=== PATIENT | male | born 1980 | race Caucasian/White ===

== ENCOUNTER 2019-06-08 11:40 | Emergency (ER) | payer OTHER ==
[~2019-06-08] VITALS: Ht 188 cm; Wt 99.8 kg
[2019-06-08 12:01] VITALS: BP 128/95
[2019-06-08] MEDS ORDERED: LORazepam Inj 2mg/ml 1ml IM ONE (12:15)
[2019-06-08 13:50] VITALS: BP 120/68
[2019-06-08 13:53] LABS: BASOPHILS % (AUTO) 1.2 % (0.0-2.0); EOSINOPHILS % (AUTO) 0.3 % (0.0-3.0); HEMATOCRIT 42.1 % (42.0-52.0); HEMOGLOBIN 14.8 G/DL (14.2-18.0); LYMPHOCYTES % (AUTO) 25.1 % (20.0-45.0); MEAN CORPUSCULAR VOLUME 91 FL (80-99); MONOCYTES % (AUTO) 9.3 % (1.0-10.0); NEUTROPHILS % (AUTO) 64.1 % (45.0-75.0); PLATELET COUNT 362 K/UL (150-450); RED BLOOD COUNT 4.61 M/UL (4.70-6.10); RED CELL DISTRIBUTION WIDTH 11.4 % (11.6-14.8); WHITE BLOOD COUNT 10.1 K/UL (4.8-10.8)
--- NOTE | 2019-06-08 14:02 | Emergency Room Report ---
History of Present Illness General Chief Complaint: Behavioral Complaint Source: Patient Present Illness HPI 38-year-old male presents ED for anxiety. Patient states that he believes someone is trying to hurt him so he came to ED to be protected. Feels anxious. Denies hearing voices. Denies drug use or alcohol use. States he was recently discharged from mental health facility. Does not know the name of it. Denies hearing voices. No other aggravating relieving factors. Denies any other associated symptoms COVID-19 risk:Contact w/high r: No COVID-19 risk:Travel to affect: No Has patient experienced woo: No Allergies: Coded Allergies: No Known Allergies (Unverified , 06/08/19) Patient History Past Medical History: HTN, psych hx Past Surgical History: none Pertinent Family History: none Social History: Denies: smoking, alcohol use, drug use Immunizations: UTD Reviewed Nursing Documentation: PMH: Agreed; PSxH: Agreed Nursing Documentation-PMH Hx Hypertension: Yes Review of Systems All Other Systems: negative except mentioned in HPI Physical Exam Vital Signs Date Time Temp Pulse Resp B/P (MAP) Pulse Ox O2 Delivery O2 Flow Rate FiO2 06/08/19 11:54 98.2 123 22 120/106 (111) 97 06/08/19 12:01 Room Air Sp02 EP Interpretation: reviewed, normal General Appearance: no apparent distress, alert, GCS 15, non-toxic Head: normocephalic, atraumatic Eyes: bilateral eye normal inspection, bilateral eye PERRL ENT: hearing grossly normal, normal pharynx, no angioedema, normal voice Neck: full range of motion, supple/symm/no masses Respiratory: chest non-tender, lungs clear, normal breath sounds, speaking full sentences Cardiovascular #1: regular rate, rhythm, no edema Cardiovascular #2: 2+ carotid (R), 2+ carotid (L), 2+ radial (R), 2+ radial (L) , 2+ dorsalis pedis (R), 2+ dorsalis pedis (L) Gastrointestinal: normal bowel sounds, non tender, soft, non-distended, no guarding, no rebound Rectal: deferred Genitourinary: normal inspection, no CVA tenderness Musculoskeletal: back normal, normal range of motion, gait/station normal, non- tender Neurologic: alert, motor strength/tone normal, oriented x3, sensory intact, responsive, speech normal Psychiatric: judgement/insight normal, memory normal, no delusions, anxious Reflexes: 3+ bicep (R), 3+ bicep (L), 3+ tricep (R), 3+ tricep (L), 3+ knee (R) , 3+ knee (L) Skin: no rash Lymphatic: no adenopathy Medical Decision Making Diagnostic Impression: Primary Impression: Substance abuse Additional Impression: Behavioral change ER Course Hospital Course 38 yo M presents with anxiety, stating somebody is trying to kill him Differential diagnoses include: Psychosis, EtOH, drug abuse Clinical course patient placed on stretcher. On monitoring analyst. After initial history and physical ordered ativan, psych labs Labs reviewed-electrolytes okay, no leukocytosis, hemoglobin/hematocrit stable, tox panel + amphetamines Patient's mother called stating she is worried about the patient. States he was recently discharged from mental health facility. Reassessment patient appears more calm but remains anxious and paranoid. Dr. Shafer (psychiatry) bedside to evaluate the patient. She agrees that his symptoms are related to substance abuse. Does not believe patient is danger to self or others. I agree with her assessment. She ordered Haldol Decanoate as well as Risperdal. On reassessment patient states he feels much better. I believe patient can be safely discharged at this time. Mother contacted and she agrees. I will provide mental health referrals. i. I feel this is a highly complex case requiring extensive working including EKG/Rhythm strip, Xray/CT/US, Blood/urine lab work, repeat exams while in ED, and administration of strong opiates/narcotics for pain control, admission to hospital or close patient follow up. Diagnosis - behavior change, substance abuse Stable and discharged to home. Followup with PMD/psych. Return to ED if symptoms recur or worsen Labs Test 06/08/19 13:30 White Blood Count 10.1 K/UL (4.8-10.8) Red Blood Count 4.61 M/UL (4.70-6.10) Hemoglobin 14.8 G/DL (14.2-18.0) Hematocrit 42.1 % (42.0-52.0) Mean Corpuscular Volume 91 FL (80-99) Mean Corpuscular Hemoglobin 32.0 PG (27.0-31.0) Mean Corpuscular Hemoglobin Concent 35.1 G/DL (32.0-36.0) Red Cell Distribution Width 11.4 % (11.6-14.8) Platelet Count 362 K/UL (150-450) Mean Platelet Volume 7.8 FL (6.5-10.1) Neutrophils (%) (Auto) 64.1 % (45.0-75.0) Lymphocytes (%) (Auto) 25.1 % (20.0-45.0) Monocytes (%) (Auto) 9.3 % (1.0-10.0) Eosinophils (%) (Auto) 0.3 % (0.0-3.0) Basophils (%) (Auto) 1.2 % (0.0-2.0) Sodium Level 143 MMOL/L (136-145) Potassium Level 3.8 MMOL/L (3.5-5.1) Chloride Level 103 MMOL/L (98-107) Carbon Dioxide Level 28 MMOL/L (21-32) Anion Gap 12 mmol/L (5-15) Blood Urea Nitrogen 11 mg/dL (7-18) Creatinine 0.8 MG/DL (0.55-1.30) Estimat Glomerular Filtration Rate > 60 mL/min (>60) Glucose Level 73 MG/DL (74-106) Calcium Level 9.5 MG/DL (8.5-10.1) Total Bilirubin 1.3 MG/DL (0.2-1.0) Direct Bilirubin 0.1 MG/DL (0.0-0.3) Aspartate Amino Transf (AST/SGOT) 41 U/L (15-37) Alanine Aminotransferase (ALT/SGPT) 26 U/L (12-78) Alkaline Phosphatase 67 U/L (46-116) Total Protein 8.3 G/DL (6.4-8.2) Albumin 4.5 G/DL (3.4-5.0) Globulin 3.8 g/dL Albumin/Globulin Ratio 1.2 (1.0-2.7) Salicylates Level 0.7 ug/mL (2.8-20) Urine Opiates Screen Negative (NEGATIVE) Acetaminophen Level < 2 MCG/ML (10-30) Urine Barbiturates Screen Negative (NEGATIVE) Phencyclidine (PCP) Screen Negative (NEGATIVE) Urine Amphetamines Screen Positive (NEGATIVE) Urine Benzodiazepines Screen Negative (NEGATIVE) Urine Cocaine Screen Negative (NEGATIVE) Urine Marijuana (THC) Screen Negative (NEGATIVE) Serum Alcohol < 3 mg/dL Last Vital Signs Date Time Temp Pulse Resp B/P (MAP) Pulse Ox O2 Delivery O2 Flow Rate FiO2 06/08/19 12:01 98.2 105 19 128/95 97 06/08/19 12:01 Room Air Status: improved Disposition: HOME, SELF-CARE Condition: Stable Referrals: [facility],REFERRING (PCP) New [place] MD Jun 08, 2019 14:02
[2019-06-08 14:05] LABS: ANION GAP 12 mmol/L (5-15); BLOOD UREA NITROGEN 11 mg/dL (7-18); CALCIUM 9.5 MG/DL (8.5-10.1); CARBON DIOXIDE 28 MMOL/L (21-32); CHLORIDE 103 MMOL/L (98-107); CREATININE 0.8 MG/DL (0.55-1.30); POTASSIUM 3.8 MMOL/L (3.5-5.1); SODIUM 143 MMOL/L (136-145)
[2019-06-08 14:14] LABS: ALANINE AMINOTRANSFERASE 26 U/L (12-78); ALBUMIN 4.5 G/DL (3.4-5.0); ALBUMIN/GLOBULIN RATIO 1.2 (1.0-2.7); ALKALINE PHOSPHATASE 67 U/L (46-116); ASPARTATE AMINO TRANSFERASE 41 U/L (15-37); BILIRUBIN,TOTAL 1.3 MG/DL (0.2-1.0)
[2019-06-08 14:17] LABS: BILIRUBIN,DIRECT 0.1 MG/DL (0.0-0.3)
[2019-06-08] MEDS ORDERED: Haloperidol Decanoate (Long Acting) 50mg Inj IM ONE (14:30)
[2019-06-08 16:05] VITALS: BP 115/80
[2019-06-08 16:14] VITALS: BP 115/80
--- NOTE | 2019-06-09 02:15 | Consultation ---
DATE OF CONSULTATION: 06/08/2019 CONSULTING PHYSICIAN: Milton Shafer M.D. HISTORY OF PRESENT ILLNESS: The patient is a 38-year-old male with a history of crystal meth abuse and psychiatric disorder, who has been admitted to the hospital for anxiety. The patient was paranoid, delusional, had persecutory delusions. He stated that he believes that people are after him. His last use of crystal meth was the night before. He uses it intravenously. He is denying suicidal or homicidal ideation. No psychotic symptoms noted. The patient was manageable. PAST PSYCHIATRIC HISTORY: He has episodes of psychiatric hospitalization due to similar situation. PAST MEDICAL HISTORY: Not significant. ALLERGIES: No known drug allergies. SUBSTANCE ABUSE HISTORY: No known history of illicit drug use or alcohol. MENTAL STATUS EXAMINATION: The patient is alert, oriented times self, place, situation, and date. Mood is anxious. Affect is flat. Thought process is concrete. Thought content, no suicidal or homicidal ideation. Positive for delusions. Insight and judgment impaired. ASSESSMENT: [place] I 1. Methamphetamine dependence. 2. Substance-induced psychosis. [place] II Deferred. [place] III As above. [place] IV Low. [place] V 60. PLAN: 1. The patient 2. Risperidone. 3. Ativan. 4. Provide the patient with reality orientation and supportive therapy. Milton Shafer M.D. DR: KATIE JOB#: [id number] CC: PAVAN
== END 2019-06-08 16:20 | disposition home or self-care (01) ==
LOC: EMR 13:14
DX: F15.10 Other stimulant abuse, uncomplicated (principal); I10 Essential (primary) hypertension
CPT/HCPCS: 36415; 80053; 80307; 82248; 85025; 96372; G0480; G0481; J1631; Z7502; 99284